=== PATIENT | female | born 1990 ===

== ENCOUNTER → 2018-01-01 | Outpatient (CLI) | payer OTHER ==
[~2018-01-01] MED LIST: COZAAR50 MG; ORPH100T PO; PROVERA2.5 MG; ZITHROMAX TRI-500 MG PO; [UNRECOGNIZED DRUG - OTHER] PO
== END | disposition home or self-care (01) ==
LOC: MRI 12:43
DX: E22.1 Hyperprolactinemia (principal)
CPT/HCPCS: 70552